=== PATIENT | male | born 1995 | race Caucasian/White ===

== ENCOUNTER 2019-04-06 06:35 | Emergency (ER) | payer BC ==
[~2019-04-06] VITALS: Ht 175.3 cm; Wt 73.5 kg
[2019-04-06 08:15] LABS: BASOPHIL % 0.3 % (0-2); PLATELET COUNT 234 x10^3mcL (130-400); RED CELL DISTRIBUTION WIDTH 12.2 % (11.5-14.5)
[2019-04-06 08:30] LABS: CALCIUM 8.9 mg/dL (8.5-10.1); CARBON DIOXIDE 31.2 mmol/L (21-32); CHLORIDE SERUM 102 mmol/L (98-107); GFR1 > 60 mL/min; GLUCOSE SERUM 95 mg/dL (74-106); POTASSIUM SERUM 4.8 mmol/L (3.5-5.1); SODIUM SERUM 141 mmol/L (136-145)
[2019-04-06 08:35] LABS: ALBUMIN 4.4 g/dL (3.4-5.0); ALKALINE PHOSPHATASE 82 U/L (46-116); ALT/SGPT 34 U/L (16-63); AMYLASE 47 U/L (25-115); AST/SGOT 23 U/L (15-37); BILIRUBIN TOTAL 2.71 mg/dL (0.20-1.00); LIPASE 57 IU/L (73-393); TOTAL PROTEIN, SERUM 8.1 g/dL (6.4-8.2)
[2019-04-06 10:49] VITALS: BP 114/68
== END 2019-04-06 10:45 | disposition home or self-care (01) ==
LOC: ED 06:35
PROVIDERS: Emergency Medicine
DX: K29.70 Gastritis, unspecified, without bleeding (principal); J45.909 Unspecified asthma, uncomplicated
CPT/HCPCS: J2550; J7030; Q0092; Q0162